=== PATIENT | female | born 1975 | race Caucasian/White ===

== ENCOUNTER 2022-01-26 10:50 | Emergency (ER) | payer OTHER, SELFPAY ==
[2022-01-26 10:56] VITALS: BP 184/120; PULSE 108; RESP 16; TEMP 36.2; O2SAT 98; BMI 40.3
[2022-01-26 11:18] VITALS: PULSE 87; RESP 24; O2SAT 100
--- NOTE | 2022-01-26 11:21 | EKG12_ITS ---
Test Reason : CP Blood Pressure : / mmHG Vent. Rate : 092 BPM Atrial Rate : 092 BPM P-R Int : 122 ms QRS Dur : 086 ms QT Int : 362 ms P-R-T Axes : 041 006 049 degrees QTc Int : 447 ms Normal sinus rhythm Nonspecific ST abnormality Abnormal ECG Confirmed by ROSEMARY ALVAREZ, BERENICE ([id number]), loan expeditor MARIA DOLORES NGUYEN ([id number]) on 01/27/2022 9:09:36 AM Referred By: TRI Confirmed By:BERENICE RILEY MD
[2022-01-26 11:25] VITALS: O2SAT 99
--- NOTE | 2022-01-26 11:27 | EDS_ITS ---
HPI History of Present Illness Chief Complaint: Chest Pain Narrative Narrative: 46 year old female presents with chest pain. Yesterday morning after waking up she noticed left sided chest pressure that also moves into her upper trapezius area and shoulder. It is worse with any movement or bending, not necessarily exertional. She feels mildly short of breath. No nausea, vomiting, or diarrhea. She has not had a recent cough but did briefly cough twice this morning and had blood tinged sputum. No cardiopulmonary history. Nonsmoker. No history of PE/DVT or risk factors. PFSH PFSH Home Medications apixaban [Eliquis DVT-PE Treat 30D Start] 5 mg PO BID 30 Days #74 tab 01/26/22 [Rx Last Taken Unknown] oxycodone-acetaminophen [Percocet] 1 tab PO Q6H PRN 2 Days #8 tab 01/26/22 [Rx Last Taken Unknown] Allergy/AdvReac Type Severity Reaction Status Date / Time Penicillins [PCN] Allergy Other Verified 01/26/22 10:58 Surgical History (Updated 01/26/22 @ 11:19 by Antonia Vee) Hx of cholecystectomy Social History Smoking Status: Never smoker ROS ROS ED ROS Narrative Constitutional: Negative for fever, chills, malaise. Eyes: Negative for visual change. ENT: Negative for sore throat, ear pain, rhinorrhea. CVS: Positive for chest pain. Negative for palpitations, syncope. Respiratory: Positive for shortness of breath, cough. Negative for orthopnea. GI: Negative for abdominal pain, nausea, vomiting, diarrhea, constipation, melena, hematochezia. : Negative for dysuria, hematuria or frequency. Neuro: Negative for headache, motor/sensory dysfunction. Skin: Negative for rash, abscess, or wound. Musc: Negative for joint pain, swelling, trauma. Heme: Negative for easy bruising, bleeding, lymphadenopathy. EXAM Physical Exam Narrative Exam Narrative: CONST: Patient sitting in no acute distress. EYES: Normal inspection. ENT: Normal inspection, moist mucous membranes. NECK: Normal inspection. RESP: No respiratory distress, CTAB. CVS: Regular rate and rhythm, no murmur, no gallop. Chest wall nontender. ABD: Soft and nontender, no guarding or rebound, nondistended, no hepatosplenomegaly. Back: Normal inspection, no CVA tenderness. SKIN: Color normal, no rash, warm, dry, intact. EXTREMITIES: Normal appearance, no pedal edema, no calf tenderness. NEURO: Oriented x4. PSYCH: Normal affect. Const Vital Signs: 01/26/22 10:56 01/26/22 11:18 01/26/22 11:25 Temperature 97.2 F L Temperature Source Temporal Pulse Rate 108 H 87 Respiratory Rate 16 24 H Respiratory Effort Normal Non-Labored Blood Pressure 184/120 H Blood Pressure Mean 141 Pulse Ox 98 100 99 Oxygen Delivery Method Room Air Room Air 01/26/22 13:40 Temperature Temperature Source Pulse Rate Respiratory Rate 17 Respiratory Effort Blood Pressure Blood Pressure Mean Pulse Ox Oxygen Delivery Method MDM MDM MDM Narrative Medical decision making narrative: Patient presents with left-sided chest pain. She appears well and nontoxic. She was slightly tachycardic in low 100s, othe rwise normal. 99% on room air. Her medical exam is unremarkable. EKG is nonischemic with troponin WNL. D-dimer was elevated so a CTA was obtained and shows PE in the branches of the left lower lobe pulmonary artery. According to HESTIA criteria she is stable to go home. She was given Eliquis starter pack and short prescription of Percocet. We thoroughly discussed risks and benefits of anticoagulation including risk of bleeding. She was instructed to follow-up with her PCP within 1 week and was discharged in stable condition. Diagnoses 1. Chest pain 2. PE Lab Data Labs: Laboratory Results - last 24 hr 01/26/22 01/26/22 01/26/22 11:10 11:10 11:10 WBC 12.3 H RBC 5.13 Hgb 13.6 Hct 41.8 MCV 81.5 MCH 26.5 L MCHC 32.5 RDW Std Deviation 39.7 RDW Coeff of Edda 13.4 Plt Count 327 MPV 9.8 Immature Gran % (Auto) 1.700 H Neut % (Auto) 71.7 H Lymph % (Auto) 19.1 Waller % (Auto) 5.9 Eos % (Auto) 1.0 Baso % (Auto) 0.6 Absolute Neuts (auto) 8.8 H Absolute Lymphs (auto) 2.34 Nucleated RBC % 0 D-Dimer Quant (PE/DVT) 1.48 H* Sodium 135 L Potassium 3.7 Chloride 101 Carbon Dioxide 30.0 Anion Gap 4 L BUN 11 Creatinine 0.75 Estim Creat Clear Calc 87.74 Est GFR (MDRD) Af Amer 108 Est GFR (MDRD) Non-Af 89 BUN/Creatinine Ratio 14.7 Glucose 99 Calcium 9.4 Troponin I High Sens 4 Radiography Diagnostic Testing: Clinical Impression(s) from Imaging Studies Chest X-Ray 01/26/22 11:28 IMPRESSION: Mild increased markings at the left lung base suggestive of either linear atelectasis and/or infiltrate. Electronically Signed: Frederic Caballero MD at 12:03 EST , Chest CTA 01/26/22 12:39 IMPRESSION: Pulmonary emboli in the branches of the left lower lobe pulmonary artery. Patchy left basilar infiltrate with mild increased markings at the right lung base. Electronically Signed: Frederic Caballero MD at 13:34 EST , Discharge Plan Triage Chief Complaint: Chest Pain ED Provider: Юлия Nayak Dx/Rx/DC Orders Clinical Impression: Pulmonary emboli Instructions: Embolism Pulmonary Dc Prescriptions: New Eliquis DVT-PE Treat 30D Start 5 mg (74 tabs) tablets,dose pack 5 mg PO BID 30 Days Qty: 74 RF: 0 oxycodone-acetaminophen [Percocet] 5-325 mg tablet 1 tab PO Q6H PRN (Reason: pain) 2 Days Qty: 8 RF: 0 Primary Care Provider: Care Physician,No Primary Referrals: Care Physician,No Primary [Primary Care Provider] - Activity Restrictions/Additional Instructions: Call your primary care doctor to follow-up in the next week. Disposition Disposition: Home, Self Care
--- NOTE | 2022-01-26 11:28 | RAD_ITS ---
STUDY: X-RAY CHEST REASON FOR EXAM: Female, 46 years old. Chest pain TECHNIQUE: Single AP portable view of the chest. COMPARISON: None. FINDINGS: EKG electrodes are seen. Mild increased markings at the left lung base suggestive of left basilar atelectasis and/or early infiltrate. There is no demonstrated pleural abnormality. Normal size heart. Normal mediastinum and jess. Normal visualized pulmonary arteries. Normal visualized aortic arch and descending thoracic aorta. Normal visualized thoracic spine. Normal visualized ribs, clavicles, and shoulders. There is no demonstrated abnormality of the visualized soft tissue structures of the upper abdomen. RAD/Chest 1 View (Portable) IMPRESSION: Mild increased markings at the left lung base suggestive of either linear atelectasis and/or infiltrate. Electronically Signed: Frederic Caballero MD at 12:03 EST ,
[2022-01-26] MEDS: Ondansetron 4 MG/2 ML Vial IV (11:58)
[2022-01-26] MEDS: Morphine 4 MG/ML Syringe IV (11:58)
[2022-01-26 12:01] LABS: Absolute Lymphocyte Count 2.34 X10^3/uL (0.83-4.51); Absolute Neutrophil Count 8.8 X10^3/uL (2.0-7.7); Basophil# 0.07 X10^3/uL; Basophil% 0.6 % (0-1); Eosinophil# 0.12 X10^3/uL; Hematocrit 41.8 % (37-47); Hemoglobin 13.6 g/dL (12.0-15.0); Lymphocyte # 2.34 X10^3/ul (0.83-4.51); Lymphocyte % 19.1 % (19-41); Mean Corp Hgb Conc 32.5 g/dL (32-36); Mean Corpuscular Hgb 26.5 pg (27.0-32.0); Mean Corpuscular Volume 81.5 fL (81-99); Mean Platelet Vol. 9.8 fl (6.2-12.0); Monocyte# 0.72 X10^3/uL; Monocyte% 5.9 % (0-10); NRBC Flagged by Analyzer 0 % (0-5); Neutrophil # 8.81 X10^3/uL (2.7-7.7); Neutrophil % 71.7 % (47-70); Platelet Count 327 K/mm3 (150-450); RBC Distribution Width CV 13.4 % (11.6-14.6); RBC Distribution Width SD 39.7 fl (35.1-43.9); Red Blood Count 5.13 M/mm3 (4.2-5.4); White Blood Count 12.3 K/mm3 (4.4-11.0)
[2022-01-26 12:08] LABS: Anion Gap 4 (5-15); BUN 11 mg/dL (7-18); BUN/Creat Ratio 14.7 RATIO (10-20); Calcium,Total 9.4 mg/dL (8.5-10.1); Chloride 101 mmol/L (98-107); Creatinine, Serum 0.75 mg/dL (0.55-1.02); EST Glomerular Filtration Rate 89 mL/min (>60); Est Glom Filt Rate - Afr Amer 108 mL/min (>60); Estimated Creatinine Clearance 87.74 ml/min; Glucose 99 mg/dL (74-106); Potassium 3.7 mmol/L (3.5-5.1); Sodium Level 135 mmol/L (136-145); Troponin-I HS 4 pg/mL (3.0-54.0)
--- NOTE | 2022-01-26 12:17 | CM.ED ---
LASHAY Note: Referral Source: Case Find Referral Source: Case Find SW met with patient and a female visitor in the room. Patient said that she is feeling better as she has morphine. SW noted that patient had no PCP. Patient had gone to PCP in the past but was not returning to the PCP. LASHAY provided paitent with Healthcare Provider Directory. Patient's visitor and patient also requested Medical POA. SW provided patient with HCPOA, per her requests. Plan: Provided patient with PCP information and HCPOA, per her request Roxanne PRUETT
[2022-01-26 12:39] LABS: D-Dimer Quantitative (DVT/PE) 1.48 FEU/ug/m (0.27-0.49)
--- NOTE | 2022-01-26 12:39 | CT_ITS ---
STUDY: CTA CHEST REASON FOR EXAM: Female, 46 years old. Chest pain, rule out PE RADIATION DOSAGE (If Supplied By Facility): CTDIvol = ( 12.66 ) mGy, DLP = ( 479.50 ) mGycm TECHNIQUE: The examination was performed with the intravenous administration of IV 100mL Isovue-370. Post-processing of the angiographic images was performed, with multiplanar reformation and 3D reconstruction. Individualized dose optimization techniques were used for this CT. COMPARISON: Comparison is made with prior chest radiograph done earlier in the day. FINDINGS: There are nonocclusive intraluminal filling defects in branches of the left lower lobe pulmonary artery. Normal thoracic aorta and visualized great vessels. There is no demonstrated aortic dissection. Normal heart and pericardium. Normal mediastinum. Normal hilar regions. Normal visualized trachea and bronchi. The lungs are well expanded. Patchy infiltrate at the lung bases slightly more prominent on the left side. Normal pleura. Normal chest wall structures. Normal osseous structures. Normal visualized upper abdomen. CT/CTA Chest W/WO Contrast IMPRESSION: Pulmonary emboli in the branches of the left lower lobe pulmonary artery. Patchy left basilar infiltrate with mild increased markings at the right lung base. Electronically Signed: Frederic Caballero MD at 13:34 EST ,
[2022-01-26 13:40] VITALS: RESP 17
[2022-01-26] MEDS: Ondansetron ODT 4 MG Tablet PO (14:09)
[2022-01-26] MEDS: oxyCODONE 5 MG Tablet PO (14:09)
[2022-01-26] MEDS: APIXABAN 5 MG TABLET 10 MG PO (14:09)
[2022-01-26 14:18] VITALS: BP 129/76; PULSE 87; RESP 18; O2SAT 98
== END 2022-01-26 14:19 | disposition home or self-care (01) ==
PROVIDERS: Emergency Provider Physician Assistant; Visit Provider Physician Assistant
DX: I26.99 Other pulmonary embolism without acute cor pulmonale (principal); R00.0 Tachycardia, unspecified
CPT/HCPCS: 71045; 71275; 80048; 84484; 85025; 85379; 93005; 96374; 96375; 99285; Q9967; A4216; J2405

== ENCOUNTER 2022-02-21 11:46 | Outpatient (CLI) | payer OTHER, SELFPAY ==
[2022-02-21 12:18] LABS: Absolute Lymphocyte Count 1.89 X10^3/uL (0.83-4.51); Absolute Neutrophil Count 4.8 X10^3/uL (2.0-7.7); Basophil# 0.05 X10^3/uL; Basophil% 0.7 % (0-1); Eosinophil# 0.09 X10^3/uL; Eosinophils% 1.2 % (0-5); Hematocrit 42.2 % (37-47); Hemoglobin 13.8 g/dL (12.0-15.0); Lymphocyte # 1.89 X10^3/ul (0.83-4.51); Lymphocyte % 26.1 % (19-41); Mean Corp Hgb Conc 32.7 g/dL (32-36); Mean Corpuscular Hgb 26.7 pg (27.0-32.0); Mean Corpuscular Volume 81.6 fL (81-99); Mean Platelet Vol. 9.9 fl (6.2-12.0); Monocyte# 0.37 X10^3/uL; Monocyte% 5.1 % (0-10); NRBC Flagged by Analyzer 0 % (0-5); Neutrophil # 4.83 X10^3/uL (2.7-7.7); Neutrophil % 66.8 % (47-70); Platelet Count 297 K/mm3 (150-450); RBC Distribution Width CV 13.5 % (11.6-14.6); Red Blood Count 5.17 M/mm3 (4.2-5.4); White Blood Count 7.2 K/mm3 (4.4-11.0)
[2022-02-21 12:49] LABS: Vitamin D,25 Hydroxy 15.5 ng/mL
[2022-02-21 13:30] LABS: ALB/GLOB Ratio 0.7 RATIO (0.9-2.4); AST(SGOT) 17 U/L (15-37); Alanine Aminotransfer ALT/SGPT 30 U/L (13-56); Albumin, Serum 3.7 g/dL (3.2-5.0); Alkaline Phosphatase 99 U/L (45-117); Anion Gap 7 (5-15); BUN 12 mg/dL (7-18); BUN/Creat Ratio 16.2 RATIO (10-20); Calcium,Total 9.6 mg/dL (8.5-10.1); Chloride 101 mmol/L (98-107); Cholesterol 237 mg/dL (200); Creatinine, Serum 0.74 mg/dL (0.55-1.02); EST Glomerular Filtration Rate 90 mL/min (>60); Est Glom Filt Rate - Afr Amer 108 mL/min (>60); Globulin 5.2 g/dL (2.2-4.2); Glucose 85 mg/dL (74-106); High Density Lipoprotein 96 mg/dL; Potassium 3.7 mmol/L (3.5-5.1); Protein, Total 8.9 g/dL (6.4-8.2); Sodium Level 135 mmol/L (136-145); Thyroid Stim Hormone (TSH) 1.86 uIU/mL (0.358-3.74); Triglycerides 97 mg/dL; Very Low Density Lipoprotein 19 mg/dL (5-40)
== END 2022-02-21 23:59 | disposition home or self-care (01) ==
LOC: BIMLAB 11:47
PROVIDERS: PCP Internal Medicine; Referring Provider Internal Medicine; Visit Provider Internal Medicine
DX: I26.99 Other pulmonary embolism without acute cor pulmonale (principal); I49.9 Cardiac arrhythmia, unspecified
CPT/HCPCS: 36415; 80053; 80061; 82306; 83036; 84443; 85025

== ENCOUNTER 2022-03-01 13:52 | Outpatient (CLI) | payer OTHER, SELFPAY | END 2022-03-01 23:59 | disposition home or self-care (01) | PROVIDERS: PCP Internal Medicine; Visit Provider Internal Medicine | DX: I49.9 Cardiac arrhythmia, unspecified (principal) | CPT/HCPCS: 93225; 93226 ==

== ENCOUNTER → 2022-03-21 | Outpatient (CLI) | payer OTHER, SELFPAY ==
--- NOTE | 2022-03-21 07:56 | ECHOCS_ITS ---
Reason For Study: Arrhythmia Procedure This was a 2D Doppler, Color Flow transthoracic echocardiogram. The study was technically difficult. Contrast injection was performed. Bubble study performed. Exam performed in department. Left Ventricle Normal LV size. Left ventricular systolic function is normal. The estimated ejection fraction is 60 %. No evidence for diastolic dysfunction. No regional wall motion abnormalities noted. Right Ventricle Normal RV size. Normal systolic function. Atria The left atrium is mildly enlarged. Normal right atrium. Aneurysmal atrial septum. No doppler evidence for ASD. Bubble contrast study negative for right to left interatrial shunt. Mitral Valve There is no mitral annular calcification. Normal mitral valve. Trivial mitral valve insufficiency. Tricuspid Valve Normal tricuspid valve. Trivial eccentric tricuspid valve insufficiency. Unable to estimate RV systolic pressure/pulmonary artery pressure due to technically difficult study. Aortic Valve Trisinus/trileaflet aortic valve. Normal aortic valve. Trivial aortic valve insufficiency. Pulmonic Valve The pulmonic valve is not well visualized. Great Vessels The aortic root is not well visualized. Pericardium/Pleural No pericardial effusion. Medication 22 gauge I.V. with prn adaptor inserted into right arm. Diluted definity 2ml given slow IV push to enhance endocardial definition. Performed a rapid injection of agitated mix of 9 cc saline and 1cc air to assess for atrial septal defect. MMode/2D Measurements & Calculations LVIDd: 5.6 cm IVSd: 1.0 cm LA dimension: 3.8 cm LVIDs: 3.3 cm LVPWd: 1.1 cm FS: 42.0 % LAV(MOD-bp): 58.0 ml LA A4 area: 24.5 cm2 RA A4 area: 14.7 cm2 LAV(MOD-bp) Indexed: 25.4 ml/m2 LAV(MOD-sp2): 36.8 ml LAV(MOD-sp4): 74.1 ml Time Measurements MV dec time: 0.24 sec Doppler Measurements & Calculations MV E max rudi: 116.7 cm/sec Lat Peak E' Rudi: 11.0 cm/sec Med Peak E' Rudi: 8.4 cm/sec MV A max rudi: 93.9 cm/sec E/E' lat: 10.6 E/E' med: 13.9 MV E/A: 1.2 MV V2 max: 129.0 cm/sec MV P1/2t max rudi: 132.9 cm/sec Ao V2 max: 150.4 cm/sec MV max P.7 mmHg MV P1/2t: 92.5 msec Ao max P.1 mmHg MV V2 mean: 70.6 cm/sec MV dec slope: 420.6 cm/sec2 MV mean P.4 mmHg MV V2 VTI: 37.5 cm MVA(P1/2t): 2.4 cm2 LV V1 max: 121.8 cm/sec PA V2 max: 92.5 cm/sec LV V1 max P.9 mmHg ECHO/Echo Complete W/ Contrast Interpretation Summary The study was technically difficult. Contrast injection was performed. Left ventricular systolic function is normal. The estimated ejection fraction is 60 %. The left atrium is mildly enlarged. Trivial mitral valve insufficiency. Trivial eccentric tricuspid valve insufficiency. Trivial aortic valve insufficiency. Unable to estimate RV systolic pressure/pulmonary artery pressure due to techni [place] difficult study. No evidence for diastolic dysfunction. Aneurysmal atrial septum. Bubble contrast study negative for right to left interatrial shunt. Ordering Physician: Iliana Yusuf Referring Physician: Iliana Yusuf Performed By: Bradly García RCS
== END | disposition home or self-care (01) ==
LOC: CVS 07:54
PROVIDERS: PCP Internal Medicine; Referring Provider Internal Medicine; Visit Provider Internal Medicine
DX: I49.9 Cardiac arrhythmia, unspecified (principal)
CPT/HCPCS: 93306; Q9957; A4216; C8929

== ENCOUNTER → 2022-04-14 | Outpatient (CLI) | payer OTHER, SELFPAY ==
[2022-04-14 14:17] LABS: Absolute Lymphocyte Count 2.19 X10^3/uL (0.83-4.51); Basophil# 0.05 X10^3/uL; Basophil% 0.5 % (0-1); Eosinophil# 0.11 X10^3/uL; Eosinophils% 1.1 % (0-5); Hematocrit 39.2 % (37-47); Hemoglobin 12.5 g/dL (12.0-15.0); Lymphocyte # 2.19 X10^3/ul (0.83-4.51); Lymphocyte % 22.5 % (19-41); Mean Corp Hgb Conc 31.9 g/dL (32-36); Mean Corpuscular Hgb 25.9 pg (27.0-32.0); Mean Corpuscular Volume 81.3 fL (81-99); Mean Platelet Vol. 9.7 fl (6.2-12.0); Monocyte# 0.39 X10^3/uL; NRBC Flagged by Analyzer 0 % (0-5); Neutrophil # 6.97 X10^3/uL (2.7-7.7); Neutrophil % 71.5 % (47-70); Platelet Count 309 K/mm3 (150-450); RBC Distribution Width CV 13.8 % (11.6-14.6); RBC Distribution Width SD 40.4 fl (35.1-43.9); Red Blood Count 4.82 M/mm3 (4.2-5.4); White Blood Count 9.8 K/mm3 (4.4-11.0)
[2022-04-14 14:47] LABS: Anion Gap 4 (5-15); BUN 10 mg/dL (7-18); BUN/Creat Ratio 14.3 RATIO (10-20); Calcium,Total 9.1 mg/dL (8.5-10.1); Chloride 104 mmol/L (98-107); EST Glomerular Filtration Rate 96 mL/min (>60); Est Glom Filt Rate - Afr Amer 116 mL/min (>60); Glucose 85 mg/dL (74-106); Potassium 3.8 mmol/L (3.5-5.1); Sodium Level 136 mmol/L (136-145)
== END | disposition home or self-care (01) ==
LOC: LAB 13:44
PROVIDERS: PCP Internal Medicine; Visit Provider Internal Medicine Cardiovascular Disease
DX: R00.2 Palpitations (principal); Z86.711 Personal history of pulmonary embolism
CPT/HCPCS: 36415; 80048; 85025

== ENCOUNTER 2022-04-25 06:52 | Day surgery (SDC) | payer OTHER, SELFPAY ==
[2022-04-21 08:25] VITALS: BMI 47.9
[2022-04-25 08:09] LABS: Mean Corp Hgb Conc 31.6 g/dL (32-36); Mean Corpuscular Volume 82.4 fL (81-99); Mean Platelet Vol. 10.5 fl (6.2-12.0); Platelet Count 296 K/mm3 (150-450); RBC Distribution Width CV 14.2 % (11.6-14.6); RBC Distribution Width SD 41.8 fl (35.1-43.9); Red Blood Count 4.61 M/mm3 (4.2-5.4)
[2022-04-25 08:19] LABS: Internal QC Validated? YES +Cl - CLEAR BKGD; Pregnancy, Urine Negative Negative
[2022-04-25 08:23] LABS: Anion Gap 5 (5-15); BUN 14 mg/dL (7-18); Calcium,Total 8.7 mg/dL (8.5-10.1); Chloride 104 mmol/L (98-107); Creatinine, Serum 0.61 mg/dL (0.55-1.02); EST Glomerular Filtration Rate 112 mL/min (>60); Est Glom Filt Rate - Afr Amer 136 mL/min (>60); Glucose 95 mg/dL (74-106); Potassium 3.9 mmol/L (3.5-5.1); Sodium Level 139 mmol/L (136-145)
--- NOTE | 2022-04-25 09:24 | CL.D_ITS ---
Patient Name: RONALD COVINGTON Study Date: 04/25/2022 Performing: Austin Doherty MD Ht: 64.96 inches 165 cm : 1975 Wt: 288.81 lbs 131 kg Age: 46 Gender: female BSA: 2.31 PROCEDURE(S) PERFORMED [id number])LHC/COR/LV CLINICAL PROFILE AND INDICATIONS Indications: Cardiac Arrythmia Heart Failure: None Stress/Imaging Stress/Image Study Performed: No CAD Presentations: No Sxs, no angina. CONCLUSIONS Normal coronary arteries Normal LV size, wall motion,and systolic function RECOMMENDATIONS Medical therapy DESCRIPTION OF PROCEDURE The patient arrived to the procedure lab. The risks and benefits of the procedure as well as a full d escription of our services here and current unavailability of surgical backup were fully explained to the patient and/or their significant other prior to the catheterization. The Timeout was completed, verifying the correct patient and procedure. The patient's procedural site was prepped and draped in the usual fashion. Local anesthetic was given subcutaneously to right radial region with Lidocaine 2% . Using a modified Seldinger technique, arterial access was obtained via the right radial artery, a 6 Fr sheath was inserted. Left Coronary Artery selective angiography was performed in multiple views u sing a 5 Fr. 4.0 [place] catheter. Right Coronary Artery selective angiography was then performed in mu ltiple views using a 5 Fr. 4.0 [place] catheter. Left Ventriculography was performed in SCOTT projection using a 5 Fr. Pigtail catheter. LV to AO pullback pressures were then recorded.The arterial sheath was pulled and a TR Band was applied for hemostasis.15cc air CORONARY ANGIOGRAPHY DOMINANCE: Right Dominant LEFT HEART ASSESSMENT Left Ventricular Ejection Fraction: by LV Gram 65 % Normal LV wall motion Normal Left Ventricular systolic function Normal Left Ventricular systolic function LEFT MAIN: Angiographically normal LEFT ANTERIOR DESCENDING ARTERY: Angiographically normal CIRCUMFLEX ARTERY: Angiographically normal RIGHT CORONARY ARTERY: Angiographically normal COMPLICATIONS No Complications PROCEDURE MEDICATIONS Versed 1 mg IV Fentanyl 50 mcg IV Versed 1 mg IV Oxygen: 2 L/min via nasal cannula Heparin given IA 04/25/2022 08:40:24 Verapamil 2.5mg, Ntg 100mcgs, 3000 units of Heparin given IA 04/25/2022 08:40:24 SUMMARY OF HEMODYNAMIC DATA Time AIR REST ECG 07:23:35 AO 137/88 (111) SA 08:42:06 LV 125/17, 32 08:48:03 LV 139/15, 22 08:48:09 LV 131/22, 29 08:48:51 LVp 129/22, 30 08:48:54 AOp 139/83 (108) 08:48:59 Signed By Austin Doherty MD On 04/25/2022 09:23:53 Austin Doherty MD
== END 2022-04-25 10:40 | disposition home or self-care (01) ==
LOC: CLSP 06:55
PROVIDERS: PCP Internal Medicine; Referring Provider Internal Medicine Cardiovascular Disease; Visit Provider Internal Medicine Cardiovascular Disease
DX: I49.9 Cardiac arrhythmia, unspecified (principal); Z79.899 Other long term (current) drug therapy; Z86.711 Personal history of pulmonary embolism
CPT/HCPCS: 36415; 80048; 81025; 85027; 93458; 99152; 99153; J7030; Q9967; C1769; C1894